=== PATIENT | male | born 1940 ===

== ENCOUNTER → 2020-01-26 08:34 | Outpatient (CLI) | payer MEDICARE, OTHER, SELFPAY ==
[2020-01-27 07:35] LABS: COVID19 Sendout Not Detected (Not Detect)
== END ==
PROVIDERS: Family Provider Family Medicine; PCP Internal Medicine; Visit Provider Physician Assistant
DX: Z11.59 Encounter for screening for other viral diseases (principal)
CPT/HCPCS: 87635